=== PATIENT | female | born 1970 | race African-American/Black ===

== ENCOUNTER 2017-03-05 23:23 | Inpatient (IN) | payer MEDICAID ==
[~2017-03-05] VITALS: Ht 170.2 cm; Wt 139.2 kg
[~2017-03-05 23:23] MED LIST: ACETAMINOPHEN325 MG RC; ADV100/50 INH; ALDACTONE25 MG PO; ALPRAZOLAM2 MG PO; AMIODARONE HCL200 MG PO; ATORVASTATIN CA40 M1 PO; AZATHIOPRINE50 MG PO; BACTRIM1 TAB PO; CARVEDILOL25 M1 PO; CARVEDILOL3.125 M1 PO; ENALAPRIL MALE2.5 MG PO; FUROSEMIDE20 MG; GUAIFENESIN AN118 ML PO; HYDROXYCHLOROQ200 MG PO; LASIX80 MG PO; LEV500 PO; LIPITOR40 MG PO; MAGNESIUM OXID400 MG PO; MEXILETINE150 MG PO; NEU300 PO; OMEPRAZOLE DR20 M1 PO; OYSTER SHELL CA PO; OYSTER SHELL CA1 T11 PO; PHOSLO667 MG PO; POTASSIUM CHLO10 MEQ PO; PREDNISONE20 MG PO; PROAIR HFA0.09 MG/A1 IH; PROTONIX20 MG PO; PROVENTIL0.09 MG/A1 INH; SOTALOL HCL80 MG PO; TYLENOL EXTRA500 M3 PO; XANAX2 MG PO; ZITHROMAX Z-PA250 MG PO; [UNRECOGNIZED DRUG - OTHER]
[2017-03-06 00:25] LABS: CALCIUM 9.1 mg/dL (8.5-10.1); CARBON DIOXIDE 32.3 mmol/L (21-32); CREATININE SERUM 1.4 mg/dL (0.6-1.0); POTASSIUM SERUM 3.6 mmol/L (3.5-5.1)
[2017-03-06 00:31] LABS: BASOPHIL % 2.3 % (0-2); PLATELET COUNT 178 x10^3mcL (130-400); RED CELL DISTRIBUTION WIDTH 15.2 % (11.5-14.5)
[2017-03-06 00:32] LABS: ALBUMIN 3.4 g/dL (3.4-5.0); BILIRUBIN TOTAL 0.4 mg/dL (0.20-1.00); TOTAL PROTEIN, SERUM 7.4 g/dL (6.4-8.2)
[2017-03-06] MEDS ORDERED: ALDACTONE25 MG PO (01:56)
[2017-03-06] MEDS ORDERED: RANEXA500 M2 PO (01:56)
[2017-03-06] MEDS ORDERED: POTASSIUM CHLO10 MEQ PO (01:57)
[2017-03-06] MEDS ORDERED: PREDNISONE10 MG PO (01:58)
[2017-03-06 03:37] LABS: MAGNESIUM 2.1 mg/dL (1.8-2.4); PHOSPHOROUS 4.3 mg/dL (2.5-4.9)
[2017-03-06 03:40] LABS: CHOLESTEROL/HDL RATIO 2.3
[2017-03-06 03:41] VITALS: BP 115/62
[2017-03-06 03:46] LABS: T3 TOTAL 0.64 ng/mL
[2017-03-06 03:51] LABS: FREE T4 1.14 ng/dL (0.76-1.46); FREE THYROXINE INDEX 3.3 ug/dL (1.4-4.5); T4(THYROXINE) 8.6 ug/dL (4.7-13.3)
[2017-03-06 05:33] VITALS: BP 107/66
[2017-03-06 06:34] LABS: BASOPHIL % 0.4 % (0-2); PLATELET COUNT 161 x10^3mcL (130-400)
[2017-03-06 06:38] LABS: RED CELL DISTRIBUTION WIDTH 14.9 % (11.5-14.5)
[2017-03-06 06:49] LABS: CALCIUM 8.8 mg/dL (8.5-10.1); CARBON DIOXIDE 31.6 mmol/L (21-32); CREATININE SERUM 1.3 mg/dL (0.6-1.0); MAGNESIUM 2.1 mg/dL (1.8-2.4); PHOSPHOROUS 4.9 mg/dL (2.5-4.9); POTASSIUM SERUM 3.2 mmol/L (3.5-5.1)
[2017-03-06 09:15] VITALS: BP 134/86
[2017-03-06 14:32] VITALS: BP 121/64
[2017-03-06 16:56] VITALS: BP 142/61
[2017-03-06 18:40] LABS: microscopic required? NO
[2017-03-06 19:00] LABS: UA SPECIFIC GRAVITY 1.015 (1.005-1.035); urine erythrocyte NEGATIVE (NEGATIVE)
[2017-03-06 19:04] LABS: AMPHETAMINE QUAL UR NONE DETECTED (NEG <=1000)
[2017-03-06 19:25] LABS: CALCIUM 8.6 mg/dL (8.5-10.1); CARBON DIOXIDE 33.7 mmol/L (21-32); CREATININE SERUM 1.4 mg/dL (0.6-1.0); MAGNESIUM 2.9 mg/dL (1.8-2.4); POTASSIUM SERUM 4.6 mmol/L (3.5-5.1)
[2017-03-07 05:48] VITALS: BP 101/51
[2017-03-07 06:50] LABS: CALCIUM 9.3 mg/dL (8.5-10.1); CARBON DIOXIDE 32.4 mmol/L (21-32); CREATININE SERUM 1.3 mg/dL (0.6-1.0); MAGNESIUM 2.5 mg/dL (1.8-2.4); PHOSPHOROUS 5.3 mg/dL (2.5-4.9); POTASSIUM SERUM 4.2 mmol/L (3.5-5.1)
[2017-03-07 07:00] LABS: BASOPHIL % 0.4 % (0-2); PLATELET COUNT 178 x10^3mcL (130-400)
[2017-03-07 07:01] LABS: RED CELL DISTRIBUTION WIDTH 15.4 % (11.5-14.5)
[2017-03-07 13:45] VITALS: BP 118/79
[2017-03-07 16:50] VITALS: BP 118/79
[2017-03-07 17:37] VITALS: BP 109/76
== END 2017-03-07 17:42 | disposition home or self-care (01) | DRG 243 ==
LOC: ED 23:23 → DU 03-06 02:25
PROVIDERS: Emergency Medicine; ADMIT Family Medicine
DX: K21.9 Gastro-esophageal reflux disease without esophagitis (principal); N17.0 Acute kidney failure with tubular necrosis; E43 Unspecified severe protein-calorie malnutrition; Z68.42 Body mass index [BMI] 45.0-49.9, adult; E11.65 Type 2 diabetes mellitus with hyperglycemia; I42.9 Cardiomyopathy, unspecified; E66.01 Morbid (severe) obesity due to excess calories; D86.9 Sarcoidosis, unspecified; G89.29 Other chronic pain; J44.9 Chronic obstructive pulmonary disease, unspecified; G47.33 Obstructive sleep apnea (adult) (pediatric); I10 Essential (primary) hypertension; F41.9 Anxiety disorder, unspecified; E78.5 Hyperlipidemia, unspecified; Z95.0 Presence of cardiac pacemaker; Z79.52 Long term (current) use of systemic steroids; Z87.891 Personal history of nicotine dependence
CPT/HCPCS: 82962; 83880; 84439; 97110-GP; J1644; J1940; J2405; J3010; J3475; J3480; J7512; Q0092; Q0163

== ENCOUNTER 2017-03-16 23:42 | Emergency (ER) | payer MEDICAID ==
[~2017-03-16 23:42] MED LIST changes: +PREDNISONE10 MG PO; +RANEXA500 M2 PO
[2017-03-17 01:19] LABS: BASOPHIL % 1.3 % (0-2); PLATELET COUNT 164 x10^3mcL (130-400)
[2017-03-17 01:21] LABS: RED CELL DISTRIBUTION WIDTH 15.1 % (11.5-14.5)
[2017-03-17 01:28] LABS: CALCIUM 8.6 mg/dL (8.5-10.1); CARBON DIOXIDE 29.5 mmol/L (21-32); CREATININE SERUM 1.4 mg/dL (0.6-1.0); POTASSIUM SERUM 3.9 mmol/L (3.5-5.1)
[2017-03-17 01:34] LABS: ALBUMIN 3.4 g/dL (3.4-5.0); BILIRUBIN TOTAL 0.29 mg/dL (0.20-1.00); TOTAL PROTEIN, SERUM 7.2 g/dL (6.4-8.2)
[2017-03-17 04:21] VITALS: BP 116/75
== END 2017-03-17 04:15 | disposition home or self-care (01) ==
LOC: ED 23:42
PROVIDERS: Emergency Medicine Emergency Medical Services
DX: S70.01XA Contusion of right hip, initial encounter (principal); S70.11XA Contusion of right thigh, initial encounter; R07.89 Other chest pain; I11.0 Hypertensive heart disease with heart failure; I50.9 Heart failure, unspecified; D86.9 Sarcoidosis, unspecified; Z88.0 Allergy status to penicillin; Z88.5 Allergy status to narcotic agent; Z88.8 Allergy status to other drugs, medicaments and biological substances; Z95.810 Presence of automatic (implantable) cardiac defibrillator; Z86.79 Personal history of other diseases of the circulatory system; Z79.899 Other long term (current) drug therapy; W18.30XA Fall on same level, unspecified, initial encounter; Y93.89 Activity, other specified; Y99.8 Other external cause status; Y92.89 Other specified places as the place of occurrence of the external cause
CPT/HCPCS: 36415; 83880; Q0092

== ENCOUNTER 2017-09-27 12:35 | Emergency (ER) | payer OTHER, MEDICAID ==
[~2017-09-27] VITALS: Ht 170.2 cm; Wt 142.4 kg
[2017-09-27 12:38] VITALS: Ht 170.2 cm; Wt 142.4 kg
[2017-09-27 13:21] LABS: BASOPHIL % 1.6 % (0-2); PLATELET COUNT 165 x10^3mcL (130-400); RED CELL DISTRIBUTION WIDTH 13.7 % (11.5-14.5)
[2017-09-27 14:05] LABS: CARBON DIOXIDE 29.1 mmol/L (21-32); CREATININE SERUM 1.4 mg/dL (0.6-1.0); POTASSIUM SERUM 3.5 mmol/L (3.5-5.1)
[2017-09-27 14:06] LABS: CALCIUM 9.1 mg/dL (8.5-10.1)
[2017-09-27 14:30] LABS: ALBUMIN 3.7 g/dL (3.4-5.0); BILIRUBIN TOTAL 0.68 mg/dL (0.20-1.00); TOTAL PROTEIN, SERUM 6.8 g/dL (6.4-8.2)
[2017-09-27 14:50] LABS: microscopic required? NO
[2017-09-27 14:56] LABS: urine erythrocyte NEGATIVE (NEGATIVE)
[2017-09-27 15:05] LABS: AMPHETAMINE QUAL UR NONE DETECTED (See below)
[2017-09-27 16:08] VITALS: BP 120/83
== END 2017-09-27 16:08 | disposition home or self-care (01) ==
LOC: ED 12:35
PROVIDERS: Emergency Medicine
DX: T78.40XA Allergy, unspecified, initial encounter (principal); D86.9 Sarcoidosis, unspecified; E11.9 Type 2 diabetes mellitus without complications; E78.00 Pure hypercholesterolemia, unspecified; E66.01 Morbid (severe) obesity due to excess calories; I11.0 Hypertensive heart disease with heart failure; I50.9 Heart failure, unspecified; Z95.810 Presence of automatic (implantable) cardiac defibrillator; Z88.5 Allergy status to narcotic agent; Z88.0 Allergy status to penicillin; X58.XXXA Exposure to other specified factors, initial encounter
CPT/HCPCS: 83880; J1200; J2930; J3490; Q0092

== ENCOUNTER 2017-10-28 19:55 | Inpatient (IN) | payer OTHER, MEDICAID ==
[~2017-10-28] VITALS: Ht 170.2 cm; Wt 147.0 kg
[2017-10-28 21:10] LABS: BASOPHIL % 0.3 % (0-2); PLATELET COUNT 172 x10^3mcL (130-400); RED CELL DISTRIBUTION WIDTH 13.4 % (11.5-14.5)
[2017-10-28 21:38] LABS: CALCIUM 8.6 mg/dL (8.5-10.1); CARBON DIOXIDE 31.6 mmol/L (21-32); CREATININE SERUM 1.6 mg/dL (0.6-1.0); POTASSIUM SERUM 3.7 mmol/L (3.5-5.1)
[2017-10-28] MEDS ORDERED: APAP500 MG PO (21:40)
[2017-10-28] MEDS ORDERED: ALPRAZOLAM2 MG PO (21:41)
[2017-10-28] MEDS ORDERED: ATORVASTATIN CA40 M1 PO (21:41)
[2017-10-28 21:42] LABS: ALBUMIN 3.7 g/dL (3.4-5.0); BILIRUBIN TOTAL 0.4 mg/dL (0.20-1.00)
[2017-10-28] MEDS ORDERED: BENADRYL ALLERG25 M1 PO (21:42)
[2017-10-28] MEDS ORDERED: FUROSEMIDE40 MG PO (21:43)
[2017-10-28] MEDS ORDERED: HYDROXYCHLOROQ200 MG PO (21:44)
[2017-10-28] MEDS ORDERED: NOVOLOG FLEX100 U/M1 SC (21:45)
[2017-10-28] MEDS ORDERED: LANTUS SOLOS100 U/M1 SQ (21:46)
[2017-10-28] MEDS ORDERED: TOPROL XL25 MG PO (21:47)
[2017-10-28] MEDS ORDERED: OXYCODONE HYDROC5 M2 PO (21:48)
[2017-10-28] MEDS ORDERED: POTASSIUM CHLO10 MEQ PO (21:49)
[2017-10-28] MEDS ORDERED: PROMETHAZI6.25 MG/5 PO (21:50)
[2017-10-28] MEDS ORDERED: REMICADE100 MG IV (21:51)
[2017-10-28 23:18] VITALS: BP 109/53
[2017-10-28 23:21] LABS: PHOSPHOROUS 3.8 mg/dL (2.5-4.9)
[2017-10-28 23:23] LABS: CHOLESTEROL/HDL RATIO 2.3
[2017-10-28 23:28] LABS: T3 TOTAL 0.63 ng/mL
[2017-10-29 00:07] LABS: FREE T4 0.99 ng/dL (0.76-1.46); FREE THYROXINE INDEX 2.6 ug/dL (1.4-4.5); T4(THYROXINE) 7.2 ug/dL (4.7-13.3)
[2017-10-29] MEDS ORDERED: GOOD SENSE OMEP20 MG PO (03:18)
[2017-10-29 06:42] LABS: BASOPHIL % 0.2 % (0-2); PLATELET COUNT 159 x10^3mcL (130-400); RED CELL DISTRIBUTION WIDTH 13.3 % (11.5-14.5)
[2017-10-29 06:47] LABS: CALCIUM 8.6 mg/dL (8.5-10.1); CARBON DIOXIDE 30.3 mmol/L (21-32); CREATININE SERUM 1.4 mg/dL (0.6-1.0); POTASSIUM SERUM 3.2 mmol/L (3.5-5.1)
[2017-10-29 07:02] VITALS: BP 108/60
[2017-10-29 07:05] LABS: microscopic required? NO
[2017-10-29 08:07] LABS: UA SPECIFIC GRAVITY 1.015 (1.005-1.035); urine erythrocyte NEGATIVE (NEGATIVE)
[2017-10-29 08:34] VITALS: BP 117/71
[2017-10-29 09:41] LABS: AMPHETAMINE QUAL UR NONE DETECTED (See below)
[2017-10-29 12:06] VITALS: BP 129/75
[2017-10-29 16:09] VITALS: BP 98/69
[2017-10-29 20:00] VITALS: BP 141/81
[2017-10-30] VITALS: BP 115/61
[2017-10-30 04:00] VITALS: BP 132/77
[2017-10-30 04:42] LABS: BASOPHIL % 0.6 % (0-2); PLATELET COUNT 172 x10^3mcL (130-400); RED CELL DISTRIBUTION WIDTH 13.3 % (11.5-14.5)
[2017-10-30 04:51] LABS: CALCIUM 8.4 mg/dL (8.5-10.1); CARBON DIOXIDE 32.2 mmol/L (21-32); CREATININE SERUM 1.2 mg/dL (0.6-1.0); MAGNESIUM 1.9 mg/dL (1.8-2.4); PHOSPHOROUS 4.7 mg/dL (2.5-4.9)
[2017-10-30 07:40] VITALS: BP 134/78
[2017-10-30 07:56] VITALS: Ht 170.2 cm; Wt 147.0 kg
[2017-10-30 12:47] VITALS: BP 127/87
[2017-10-30] MEDS ORDERED: AMIODARONE HCL200 MG PO (14:27)
== END 2017-10-30 14:59 | disposition home or self-care (01) | DRG 73 ==
LOC: ED 19:55 → DU 22:00 → IC 10-29 14:52 → DU 10-29 15:03 → IC 10-29 15:06 → DU 10-30 10:49
PROVIDERS: Emergency Medicine; Family Medicine
DX: G90.9 Disorder of the autonomic nervous system, unspecified (principal); N17.0 Acute kidney failure with tubular necrosis; I50.43 Acute on chronic combined systolic (congestive) and diastolic (congestive) heart failure; D68.59 Other primary thrombophilia; I42.8 Other cardiomyopathies; I47.2 Ventricular tachycardia; E11.65 Type 2 diabetes mellitus with hyperglycemia; I11.0 Hypertensive heart disease with heart failure; E87.6 Hypokalemia; E78.5 Hyperlipidemia, unspecified; D86.9 Sarcoidosis, unspecified; G47.33 Obstructive sleep apnea (adult) (pediatric); I10 Essential (primary) hypertension; Z95.810 Presence of automatic (implantable) cardiac defibrillator
CPT/HCPCS: 83880; 84439; 87046; 87046-59; J0282; J1815; J2060; J7030; J7512; Q0092; Q0162; Q0163

== ENCOUNTER 2017-11-07 04:48 | Inpatient (IN) | payer OTHER, MEDICAID ==
[~2017-11-07] VITALS: Ht 170.2 cm; Wt 145.3 kg
[~2017-11-07 04:48] MED LIST changes: +APAP500 MG PO; +BENADRYL ALLERG25 M1 PO; +FUROSEMIDE40 MG PO; +GOOD SENSE OMEP20 MG PO; +LANTUS SOLOS100 U/M1 SQ; +NOVOLOG FLEX100 U/M1 SC; +OXYCODONE HYDROC5 M2 PO; +PROMETHAZI6.25 MG/5 PO; +REMICADE100 MG IV; +TOPROL XL25 MG PO
[2017-11-07 05:03] VITALS: Ht 170.2 cm; Wt 145.3 kg
[2017-11-07 05:48] LABS: PLATELET COUNT 139 x10^3mcL (130-400); RED CELL DISTRIBUTION WIDTH 13.1 % (11.5-14.5)
[2017-11-07 05:58] LABS: CALCIUM 8.1 mg/dL (8.5-10.1); CARBON DIOXIDE 31.1 mmol/L (21-32); CREATININE SERUM 1.3 mg/dL (0.6-1.0); POTASSIUM SERUM 3.7 mmol/L (3.5-5.1)
[2017-11-07 06:03] LABS: ALBUMIN 3.4 g/dL (3.4-5.0); BILIRUBIN TOTAL 0.41 mg/dL (0.20-1.00); TOTAL PROTEIN, SERUM 6.4 g/dL (6.4-8.2)
[2017-11-07 13:14] LABS: CHOLESTEROL/HDL RATIO 2.1; MAGNESIUM 1.9 mg/dL (1.8-2.4); PHOSPHOROUS 5.1 mg/dL (2.5-4.9)
[2017-11-07 13:22] LABS: T3 TOTAL 0.68 ng/mL
[2017-11-07 13:23] LABS: FREE T4 1.05 ng/dL (0.76-1.46); FREE THYROXINE INDEX 2.4 ug/dL (1.4-4.5); T4(THYROXINE) 6.3 ug/dL (4.7-13.3)
[2017-11-07 13:58] VITALS: BP 117/69
[2017-11-07 14:30] VITALS: BP 159/94
[2017-11-07 17:53] VITALS: BP 113/70
[2017-11-07 21:01] VITALS: BP 118/75
[2017-11-08 01:42] LABS: AMPHETAMINE QUAL UR NONE DETECTED (See below)
[2017-11-08 03:17] LABS: microscopic required? NO
[2017-11-08 03:25] LABS: UA SPECIFIC GRAVITY 1.015 (1.005-1.035); urine erythrocyte NEGATIVE (NEGATIVE)
[2017-11-08 06:10] VITALS: BP 113/68
[2017-11-08 12:05] VITALS: BP 139/75
[2017-11-08 12:17] VITALS: BP 139/75
== END 2017-11-08 12:28 | disposition home or self-care (01) | DRG 308 ==
LOC: ED 04:48 → DU 09:05
PROVIDERS: Emergency Medicine; Family Medicine
DX: I47.2 Ventricular tachycardia (principal); N17.0 Acute kidney failure with tubular necrosis; I50.43 Acute on chronic combined systolic (congestive) and diastolic (congestive) heart failure; I42.8 Other cardiomyopathies; Z68.43 Body mass index [BMI] 50.0-59.9, adult; I11.0 Hypertensive heart disease with heart failure; E11.65 Type 2 diabetes mellitus with hyperglycemia; G47.33 Obstructive sleep apnea (adult) (pediatric); D86.9 Sarcoidosis, unspecified; E78.5 Hyperlipidemia, unspecified; Z95.810 Presence of automatic (implantable) cardiac defibrillator
CPT/HCPCS: 83880; 84439; J1170; J3010; J7512; Q0162; Q0163; Q9967

== ENCOUNTER 2018-07-20 18:15 | Inpatient (IN) | payer OTHER, MEDICAID ==
[~2018-07-20] VITALS: Ht 170.2 cm; Wt 145.2 kg
[2018-07-20 18:27] VITALS: Ht 170.2 cm; Wt 145.2 kg
[2018-07-20 19:34] LABS: BASOPHIL % 0.3 % (0-2); PLATELET COUNT 155 x10^3mcL (130-400); RED CELL DISTRIBUTION WIDTH 13.8 % (11.5-14.5)
[2018-07-20 19:47] LABS: ALBUMIN 3.7 g/dL (3.4-5.0); BILIRUBIN TOTAL 0.7 mg/dL (0.20-1.00); CARBON DIOXIDE 29.8 mmol/L (21-32); CREATININE SERUM 1.4 mg/dL (0.6-1.0); MAGNESIUM 2.2 mg/dL (1.8-2.4); PHOSPHOROUS 3.7 mg/dL (2.5-4.9); POTASSIUM SERUM 4.7 mmol/L (3.5-5.1); TOTAL PROTEIN, SERUM 7.4 g/dL (6.4-8.2)
[2018-07-20] MEDS ORDERED: MAGNESIUM OXID400 MG PO (20:51)
[2018-07-20] MEDS ORDERED: ENTRESTO1 TA2 PO (20:51)
[2018-07-20 21:10] LABS: CHOLESTEROL/HDL RATIO 2.1
[2018-07-20 21:15] LABS: FREE THYROXINE INDEX 3.1 ug/dL (1.4-4.5); T3 TOTAL 0.83 ng/mL; T4(THYROXINE) 7.7 ug/dL (4.7-13.3)
[2018-07-20 22:15] VITALS: BP 107/64
[2018-07-21 03:16] LABS: PLATELET COUNT 153 x10^3mcL (130-400); RED CELL DISTRIBUTION WIDTH 12.9 % (11.5-14.5)
[2018-07-21 03:57] LABS: BASOPHIL % 2.1 % (0-2)
[2018-07-21 03:58] LABS: CALCIUM 8.6 mg/dL (8.5-10.1); CARBON DIOXIDE 32.7 mmol/L (21-32); CREATININE SERUM 1.3 mg/dL (0.6-1.0)
[2018-07-21 05:21] VITALS: BP 159/101
[2018-07-21 05:50] VITALS: BP 109/65
[2018-07-21 10:10] VITALS: BP 126/78
[2018-07-21] MEDS ORDERED: LANTUS SOLOS100 U/M1 SQ (10:20)
[2018-07-21] MEDS ORDERED: NOVOLOG FLEX100 U/M1 SC (10:21)
[2018-07-21 12:38] VITALS: BP 126/78
[2018-07-21 13:35] VITALS: BP 112/53
== END 2018-07-21 13:46 | disposition home or self-care (01) | DRG 205 ==
LOC: ED 18:15 → DU 20:35
PROVIDERS: Emergency Medicine; ADMIT Family Medicine
DX: M94.0 Chondrocostal junction syndrome [Tietze] (principal); N17.0 Acute kidney failure with tubular necrosis; Z68.43 Body mass index [BMI] 50.0-59.9, adult; E11.65 Type 2 diabetes mellitus with hyperglycemia; E78.5 Hyperlipidemia, unspecified; Z79.4 Long term (current) use of insulin; E66.01 Morbid (severe) obesity due to excess calories; Z95.810 Presence of automatic (implantable) cardiac defibrillator; Z86.2 Personal history of diseases of the blood and blood-forming organs and certain disorders involving the immune mechanism
CPT/HCPCS: 82962; 83880; 84439; J1815; J2405; J3010; J7030; J7512; Q0092

== ENCOUNTER 2019-06-07 11:09 | Emergency (ER) | payer OTHER ==
[~2019-06-07] VITALS: Ht 172.7 cm; Wt 136.1 kg
[~2019-06-07 11:09] MED LIST changes: +ENTRESTO1 TA2 PO
[2019-06-07 11:14] VITALS: Ht 172.7 cm; Wt 136.1 kg
[2019-06-07 13:37] VITALS: BP 111/66
== END 2019-06-07 13:37 | disposition home or self-care (01) ==
LOC: ED 11:09
DX: S79.911A Unspecified injury of right hip, initial encounter (principal); M79.651 Pain in right thigh; I11.0 Hypertensive heart disease with heart failure; I50.9 Heart failure, unspecified; E11.9 Type 2 diabetes mellitus without complications; Z90.49 Acquired absence of other specified parts of digestive tract; Z98.890 Other specified postprocedural states; Z95.0 Presence of cardiac pacemaker; Z88.0 Allergy status to penicillin; Z88.6 Allergy status to analgesic agent; W18.2XXA Fall in (into) shower or empty bathtub, initial encounter; Y93.89 Activity, other specified; Y92.091 Bathroom in other non-institutional residence as the place of occurrence of the external cause; Y99.8 Other external cause status
CPT/HCPCS: J3010